=== PATIENT | female | born 1990 | race African-American/Black ===

== ENCOUNTER 2018-09-22 01:56 | Inpatient (IN) ==
[2018-09-22] MEDS ORDERED: LACTATED RINGERS 1,000 ML IV ONE (03:00)
[2018-09-22 03:07] LABS: Apearance,Urine CLEAR (Clear); Bilirubin,Urine Negative (Negative); Blood, Urine Negative (Negative); Glucose,Urine (UA) Negative (Negative); Ketones,Urine Negative (Negative); Mucus,Urine Occasional /LPF (Occasional); Nitrite,Urine Negative (Negative); Protein,Urine Negative; Squamous Epithelial Cell,Urine Occasional /HPF (0-10); Urine Color Straw (Yellow); Urine Specific Gravity 1.012 (1.001-1.035); Urine Urobilinogen < 2.0 EU/DL (0.2-1.0); WBC,Urine 1 /HPF (0-6)
[2018-09-22] MEDS: TERBUTALINE 1 MG/1 ML VIAL SUBCUT PRN ×3 (03:21→04:42)
[2018-09-22] MEDS ORDERED: CALCIUM GLUCONATE 1,000 MG in SODIUM CHLORIDE 0.9% 100 ML IV PRN (05:44)
[2018-09-22] MEDS ORDERED: LACTATED RINGERS 1,000 ML IV SCH (06:00)
[2018-09-22] MEDS ORDERED: MAGNESIUM SULF DRIP 40 GM/1,000 ML ML IV SCH (06:00)
[2018-09-22 06:18] LABS: Basophils % 0.1 % (0.0-0.8); Eosinophils % 0.5 % (0.00-10.9); Hematocrit 31.9 VOL% (35.7-47.0); Hemoglobin 10.1 GM/DL (12.0-16.0); Immature Granulocytes % 0.5 %; Immature Granulocytes Absolute 0.04 #; Lymphocytes # 1.3 10*3/uL (1.4-4.0); Lymphocytes % 16.5 % (21.3-54.2); Mean Corpuscular HGB Conc 31.7 GM/DL (32-36); Mean Corpuscular Volume 93.5 FL (87-102); Mean Platelet Volume 8.9 FL (9.6-12.0); Monocytes % 7.3 % (1.7-12.7); Neutrophils % 75.1 % (38.7-73.9); Platelet Count 244 T/CUMM (130-400); Red Blood Count 3.41 MC/CUMM (3.8-5.5); Red Cell Distribution Width 14.3 % (9.3-17.3); White Blood Count 8.1 T/CUMM (4-12)
[2018-09-22 06:47] LABS: Alanine Aminotransferase 21 U/L (13-56); Albumin 2.4 G/DL (3.4-5.0); Alkaline Phosphatase 89 U/L (45-117); Aspartate Amino Transferase 14 U/L (0-37); Bilirubin,Total < 0.39 MG/DL (0.2-1.0); Blood Urea Nitrogen 7 MG/DL (7-18); Calcium 8.1 MG/DL (8.5-10.1); Glucose 95 MG/DL (74-106); Osmolality,Calculated 276.4 MOS/KG (273-304); Total Protein 6.3 G/DL (6.4-8.3)
[2018-09-22] MEDS ORDERED: NIFEdipine 10 MG CAPSULE PO SCH (08:00)
[2018-09-22] MEDS: NIFEdipine 10 MG CAPSULE PO SCH ×3 (08:29→20:04)
[2018-09-23] MEDS ORDERED: TERBUTALINE 1 MG/1 ML VIAL SUBCUT ONE ×2 (00:14→00:17)
[2018-09-23] MEDS: NIFEdipine 10 MG CAPSULE PO SCH ×5 (00:20→16:23)
== END 2018-09-23 16:23 | disposition home or self-care (01) | DRG 563 ==
LOC: N.LDOUT 01:56 → N.LD 01:59
PROVIDERS: ADMIT Obstetrics & Gynecology; ATTEND Obstetrics & Gynecology

== ENCOUNTER 2018-09-26 11:19 | Inpatient (IN) ==
[2018-09-26] MEDS ORDERED: ONDANSETRON 4 MG/2 ML VIAL ONE (11:36)
[2018-09-26] MEDS ORDERED: ONDANSETRON 4 MG/2 ML VIAL IV PRN (11:40)
[2018-09-26] MEDS ORDERED: LACTATED RINGERS 1,000 ML IV ONE (11:40)
[2018-09-26] MEDS ORDERED: MEPERIDINE 50 MG/1 ML VIAL IM PRN (11:51)
[2018-09-26] MEDS ORDERED: BUTORPHANOL 2 MG/ML VIAL IM PRN (11:57)
[2018-09-26] MEDS ORDERED: TERBUTALINE 1 MG/1 ML VIAL SUBCUT ONE (11:58)
[2018-09-26] MEDS: TERBUTALINE 1 MG/1 ML VIAL SUBCUT PRN ×2 (12:00→12:20)
[2018-09-26] MEDS ORDERED: LACTATED RINGERS 1,000 ML IV SCH ×2 (12:00→16:00)
[2018-09-26] MEDS ORDERED: NIFEdipine 10 MG CAPSULE PO SCH (13:30)
[2018-09-26] MEDS ORDERED: CALCIUM GLUCONATE 1,000 MG in SODIUM CHLORIDE 0.9% 100 ML IV PRN (15:34)
[2018-09-26] MEDS ORDERED: MAGNESIUM SULF RIDER 100 ML IV ONE ×2 (15:34→15:39)
[2018-09-26] MEDS ORDERED: MAGNESIUM SULF DRIP 40 GM/1,000 ML ML IV ONE (15:39)
[2018-09-26] MEDS ORDERED: OXYTOCIN/LR 20 UNIT/1,000 ML BAG IV ONE ×2 (15:49→16:12)
[2018-09-26] MEDS ORDERED: AMPICILLIN 2,000 MG VIAL ONE (15:56)
[2018-09-26] MEDS ORDERED: SODIUM CHLORIDE 0.9% 100 ML IV ONE (15:56)
[2018-09-26] MEDS ORDERED: AMPICILLIN INJ 2,000 MG in SODIUM CHLORIDE 0.9% 100 ML IV SCH (16:00)
[2018-09-26] MEDS ORDERED: MAGNESIUM SULF DRIP 40 GM/1,000 ML ML IV SCH (16:00)
[2018-09-26 16:01] LABS: Basophils % 0.2 % (0.0-0.8); Hematocrit 35.1 VOL% (35.7-47.0); Hemoglobin 11.7 GM/DL (12.0-16.0); Immature Granulocytes % 0.4 %; Immature Granulocytes Absolute 0.07 #; Lymphocytes # 0.6 10*3/uL (1.4-4.0); Lymphocytes % 3.3 % (21.3-54.2); Mean Corpuscular HGB Conc 33.3 GM/DL (32-36); Mean Corpuscular Volume 89.1 FL (87-102); Mean Platelet Volume 9.3 FL (9.6-12.0); Monocytes % 6.1 % (1.7-12.7); Platelet Count 293 T/CUMM (130-400); Red Blood Count 3.94 MC/CUMM (3.8-5.5); Red Cell Distribution Width 13.6 % (9.3-17.3); White Blood Count 16.8 T/CUMM (4-12)
[2018-09-26] MEDS ORDERED: METHYLERGONOVINE 0.2 MG/1 ML AMP ONE (16:15)
[2018-09-26 16:23] LABS: Albumin 2.8 G/DL (3.4-5.0); Bilirubin,Total 0.5 MG/DL (0.2-1.0); Calcium 8.9 MG/DL (8.5-10.1); Total Protein 7.4 G/DL (6.4-8.3)
[2018-09-26 16:24] LABS: Lymphocytes 3 % (20-55); Platelet Estimate Normal; Segmented Neutrophils 91 % (50-85); Total Cells Counted 100
[2018-09-26 16:25] LABS: Hypochromasia 1+; Macrocytosis Slight
[2018-09-26] MEDS ORDERED: BUTORPHANOL 2 MG/ML VIAL IV ONE (16:31)
[2018-09-26 16:45] LABS: Cord Arterial Blood HCO3 26.7 MMOL/L
[2018-09-26 16:46] LABS: Cord Venous Blood HCO3 21.4 MMOL/L; Cord Venous Blood PCO2 50.4 MMHG
[2018-09-26 16:47] LABS: Cord Venous Blood PO2 15.2
[2018-09-26] MEDS ORDERED: BENZOCAINE 20%/MENTHOL 0.5% SPRAY 56 GM CAN TOP PRN (18:48)
[2018-09-26] MEDS ORDERED: IBUPROFEN 600 MG TABLET PO PRN (18:49)
[2018-09-26] MEDS: DOCUSATE SODIUM 100 MG CAPSULE PO SCH (20:36)
[2018-09-27 06:10] LABS: Basophils % 0.1 % (0.0-0.8); Eosinophils % 0.2 % (0.00-10.9); Hemoglobin 10.6 GM/DL (12.0-16.0); Immature Granulocytes % 1.1 %; Immature Granulocytes Absolute 0.19 #; Lymphocytes # 1.2 10*3/uL (1.4-4.0); Mean Corpuscular HGB Conc 33.1 GM/DL (32-36); Mean Corpuscular Volume 89.1 FL (87-102); Mean Platelet Volume 9.3 FL (9.6-12.0); Neutrophils % 84.6 % (38.7-73.9); Platelet Count 267 T/CUMM (130-400); Red Blood Count 3.59 MC/CUMM (3.8-5.5); Red Cell Distribution Width 13.9 % (9.3-17.3); White Blood Count 16.6 T/CUMM (4-12)
[2018-09-27] MEDS: DOCUSATE SODIUM 100 MG CAPSULE PO SCH ×2 (08:58→20:51)
[2018-09-27] MEDS: IBUPROFEN 800 MG TABLET PO PRN (10:31)
[2018-09-27] MEDS: CIPROFLOXACIN 500 MG TABLET PO SCH (20:51)
[2018-09-27] MEDS ORDERED: CIPROFLOXACIN 500 MG TABLET PO SCH (21:00)
[2018-09-28] MEDS: IBUPROFEN 800 MG TABLET PO PRN (07:58)
[2018-09-28] MEDS: CIPROFLOXACIN 500 MG TABLET PO SCH (08:00)
[2018-09-28] MEDS: DOCUSATE SODIUM 100 MG CAPSULE PO SCH (08:00)
[2018-09-28 08:40] VITALS: BP 114/67
[2018-09-28] MEDS ORDERED: DIPH/TET/ACEL PERT BOOSTER VACCINE 0.5 ML VIAL IM ONE (11:29)
[2018-09-28] MEDS ORDERED: AMPICILLIN 500 MG CAPSULE PO SCH (13:00)
== END 2018-09-28 12:15 | disposition home or self-care (01) | DRG 560 ==
LOC: N.LDOUT 11:19 → N.LD 11:20 → N.OB 18:30
PROVIDERS: ADMIT Obstetrics & Gynecology; ATTEND Obstetrics & Gynecology